=== PATIENT | female | born 1975 | race Caucasian/White ===

== ENCOUNTER 2019-12-22 15:53 | Emergency (ER) | payer BC ==
[~2019-12-22] VITALS: Ht 160 cm; Wt 90.3 kg
--- NOTE | ~2019-12-22 | EKG ---
[facility] [place] [address] ELECTROCARDIOGRAM REPORT Name: TRE WRIGHT Room #: PRE [facility]..#: [id number] Admission: Attend Phys: Discharge: Date of : 73 Report #: [id number] THIS REPORT FOR: cc: NO FAMILY PHYSICIAN or PCP Doris George MD ~ THIS REPORT FOR: //name// [facility] Test Date: 2019-12-22 Test Time: 15:57:04 Pat Name: TRE WRIGHT Department: Room: Gender: F Photographic Specialist: CORKY : 1975 Requested By: Eliza Corea Order Number: [id number] MD: Measurements Intervals [place] Rate: 51 P: 66 VA: 156 QRS: 59 QRSD: 112 T: 25 QT: 417 QTc: 385 Interpretive Statements Sinus rhythm Borderline intraventricular conduction delay Baseline wander in lead(s) I,III,aVL No previous ECG available for comparison [email or web address] By: 56 Doris George MD /EPI
[2019-12-22] MEDS ORDERED: LEXAPRO5 MG PO (16:03)
[2019-12-22] MEDS ORDERED: TIROSINT112 MCG PO (16:03)
[2019-12-22 16:29] LABS: ABSOLUTE NEUTROPHILS 4.1 thou/uL (1.4-8.2); BASOPHILS 0.8 % (0.0-2.0); EOSINOPHILS 2.9 % (0.0-3.0); HEMATOCRIT 42.5 % (37.0-47.0); HEMOGLOBIN 13.9 gm/dL (12.0-15.0); LYMPHOCYTES 31.9 % (24.0-44.0); MCH 30.7 pg (26.0-34.0); MCHC 32.7 g/dL (28.0-37.0); MCV 93.8 fL (80.0-100.0); MONOCYTES 4.9 % (1.0-8.0); PLATELET COUNT 346 thou/uL (150-400); POLYS 59.5 % (36.0-66.0); RBC 4.53 mil/uL (4.20-5.00); RDW 14.2 % (10.5-14.5); WBC 6.8 thou/uL (4.0-11.0)
[2019-12-22 16:35] LABS: ANION GAP 9 mmol/L (7-16); BUN 12 mg/dL (7-18); CALCIUM 8.2 mg/dL (8.5-10.1); CHLORIDE 101 mmol/L (98-107); CO2 27 mmol/L (21-32); CREATININE 0.7 mg/dL (0.6-1.0); GLUCOSE 81 mg/dL (74-106); POTASSIUM 3.8 mmol/L (3.5-5.1); SODIUM 137 mmol/L (136-145)
[2019-12-22 16:45] LABS: ALBUMIN 4.1 g/dL (3.4-5.0); SGOT 48 U/L (15-37); SGPT 47 U/L (30-65); TOTAL BILIRUBIN 0.4 mg/dL (<0.1-1.0); TOTAL PROTEIN 7.9 g/dL (6.4-8.2); TROPONIN-I <0.06 ng/mL (<0.06)
[2019-12-22 19:41] VITALS: BP 118/65
== END 2019-12-22 19:52 | disposition home or self-care (01) ==
LOC: ER 15:53
PROVIDERS: Nurse Practitioner Family
DX: R07.89 Other chest pain (principal); E03.9 Hypothyroidism, unspecified